=== PATIENT | male | born 1965 ===

== ENCOUNTER 2020-07-13 00:22 | Inpatient (IN) ==
[2020-07-13] MEDS ORDERED: GLUCAGON 1 MG VIAL IM PRN ×2 (02:46→02:57)
[2020-07-13] MEDS ORDERED: DEXTROSE 50% 25 GM/50 ML VIAL IV PRN ×2 (02:46→02:57)
[2020-07-13] MEDS ORDERED: ACETAMINOPHEN 325 MG TABLET PO PRN (02:57)
[2020-07-13] MEDS ORDERED: ALBUTEROL 2.5 MG/3 ML NEB RESP TX PRN (02:57)
[2020-07-13] MEDS: ENOXAPARIN 40 MG/0.4 ML SYRINGE SUBCUT SCH (03:51)
[2020-07-13] MEDS: HYDROmorphone 2 MG/1 ML VIAL IV PRN ×5 (06:40→20:11)
[2020-07-13] MEDS: PIPERACILLIN/TAZOBACTAM 3,375 MG in SODIUM CHLORIDE 0.9% 100 ML IV SCH ×2 (06:59→16:30)
[2020-07-13 07:15] LABS: Basophils % 0.1 % (0.0-0.8); Hematocrit 31.5 VOL% (42.0-52.0); Hemoglobin 10.8 GM/DL (14.0-18.0); Immature Granulocytes % 0.3 %; Immature Granulocytes Absolute 0.05 #; Lymphocytes # 0.4 10*3/uL (1.4-4.0); Lymphocytes % 2.9 % (21.2-54.2); Mean Corpuscular HGB Conc 34.3 GM/DL (32-36); Mean Corpuscular Volume 94.6 FL (87-102); Mean Platelet Volume 9.1 FL (9.6-12.0); Monocytes % 7.9 % (1.7-12.7); Neutrophils % 88.8 % (38.7-73.9); Platelet Count 243 T/CUMM (130-400); Red Blood Count 3.33 MC/CUMM (3.8-5.5); Red Cell Distribution Width 12.4 % (9.3-17.3); White Blood Count 15.2 T/CUMM (4-12)
[2020-07-13] MEDS: ALBUTEROL/IPRATROPIUM 3 ML NEB RESP TX SCH ×3 (07:23→19:53)
[2020-07-13 07:36] LABS: Albumin 2.6 G/DL (3.4-5.0); Bilirubin,Total 0.4 MG/DL (0.2-1.0); Calcium 8.5 MG/DL (8.5-10.1); Osmolality,Calculated 282.3 MOS/KG (273-304); Potassium 4.2 MMOL/L (3.5-5.1); Total Protein 6.3 G/DL (6.4-8.2)
[2020-07-13 07:38] LABS: Anisocytosis 1+; Band Neutrophils 2 % (0-10); Lymphocytes 5 % (20-55); Macrocytosis Slight; Platelet Estimate Normal; Segmented Neutrophils 84 % (50-85); Total Cells Counted 100
[2020-07-13] MEDS: INSULIN REGULAR 100 UNIT/ML SUBCUT SCH ×4 (08:14→23:19)
[2020-07-13] MEDS: BENZONATATE 100 MG CAPSULE PO SCH ×3 (08:26→20:10)
[2020-07-13] MEDS: PANTOPRAZOLE 40 MG TABLET PO SCH (08:27)
[2020-07-13 10:11] LABS: INR 1.1; Partial Thromboplastin Time 30.2 SECS (23.9-33.8)
[2020-07-13] MEDS: ONDANSETRON 4 MG/2 ML VIAL IV PRN ×2 (10:38→14:39)
[2020-07-13] MEDS ORDERED: fentaNYL 25 MCG/HR PATCH TRANSDERM SCH (17:30)
[2020-07-13] MEDS ORDERED: DOCUSATE SODIUM 100 MG CAPSULE PO PRN (17:58)
[2020-07-14] MEDS: PIPERACILLIN/TAZOBACTAM 3,375 MG in SODIUM CHLORIDE 0.9% 100 ML IV SCH ×2 (00:07→10:54)
[2020-07-14] MEDS: HYDROmorphone 2 MG/1 ML VIAL IV PRN ×7 (00:08→19:34)
[2020-07-14] MEDS: ENOXAPARIN 40 MG/0.4 ML SYRINGE SUBCUT SCH (03:24)
[2020-07-14] MEDS: ALBUTEROL/IPRATROPIUM 3 ML NEB RESP TX SCH ×4 (03:25→19:38)
[2020-07-14 05:37] LABS: Basophils % 0.2 % (0.0-0.8); Eosinophils # 0.1 10*3/uL (0.0-0.87); Eosinophils % 0.8 % (0.00-10.9); Hematocrit 33.9 VOL% (42.0-52.0); Hemoglobin 11.2 GM/DL (14.0-18.0); Immature Granulocytes % 0.5 %; Immature Granulocytes Absolute 0.05 #; Lymphocytes # 0.6 10*3/uL (1.4-4.0); Lymphocytes % 6.2 % (21.2-54.2); Mean Corpuscular Volume 96.3 FL (87-102); Mean Platelet Volume 9.2 FL (9.6-12.0); Monocytes % 6.4 % (1.7-12.7); Neutrophils % 85.9 % (38.7-73.9); Platelet Count 265 T/CUMM (130-400); Red Blood Count 3.52 MC/CUMM (3.8-5.5); Red Cell Distribution Width 12.4 % (9.3-17.3); White Blood Count 10.1 T/CUMM (4-12)
[2020-07-14 06:00] LABS: Albumin 2.8 G/DL (3.4-5.0); Bilirubin,Total 0.8 MG/DL (0.2-1.0); Calcium 8.4 MG/DL (8.5-10.1); Osmolality,Calculated 277.5 MOS/KG (273-304); Potassium 3.6 MMOL/L (3.5-5.1); Total Protein 6.5 G/DL (6.4-8.2)
[2020-07-14] MEDS: INSULIN REGULAR 100 UNIT/ML SUBCUT SCH ×4 (08:18→20:46)
[2020-07-14 09:51] LABS: Lymphocytes,Pleural Fluid 72 %; Monocytes,Pleural Fluid 1 %; Neutrophils,Pleural Fluid 27 %
[2020-07-14 09:52] LABS: RBC,Pleural Fluid 66722 T/CUMM
[2020-07-14] MEDS: MAGNESIUM HYDROXIDE SUSP 30 ML UDCUP PO PRN ×2 (10:35→20:46)
[2020-07-14] MEDS ORDERED: BISACODYL 10 MG SUPP RECTAL ONE (10:50)
[2020-07-14] MEDS ORDERED: LACTULOSE 20 GM/30 ML UDCUP PO ONE (10:50)
[2020-07-14] MEDS ORDERED: POLYETHYLENE GLYCOL POWDER 255 GM BOTTLE PO ONE (10:50)
[2020-07-14] MEDS: BENZONATATE 100 MG CAPSULE PO SCH ×3 (11:24→20:47)
[2020-07-14] MEDS: PANTOPRAZOLE 40 MG TABLET PO SCH (11:24)
[2020-07-14] MEDS ORDERED: fentaNYL 50 MCG/HR PATCH TRANSDERM SCH (12:00)
[2020-07-14] MEDS: POLYETHYLENE GLYCOL POWDER 17 GM PACK PO SCH (13:32)
[2020-07-14] MEDS: DOCUSATE SODIUM 100 MG CAPSULE PO SCH (20:47)
[2020-07-14] MEDS ORDERED: LEVOFLOXACIN INJ 750 MG in PREMIX 1 EACH IV SCH (21:00)
[2020-07-14] MEDS ORDERED: SODIUM PHOSPHATE ENEMA 133 ML BOTTLE RECTAL ONE (22:40)
[2020-07-15] MEDS: ALBUTEROL/IPRATROPIUM 3 ML NEB RESP TX SCH ×2 (00:23→07:24)
[2020-07-15] MEDS: HYDROmorphone 2 MG/1 ML VIAL IV PRN ×3 (00:49→09:35)
[2020-07-15] MEDS: ENOXAPARIN 40 MG/0.4 ML SYRINGE SUBCUT SCH (03:28)
[2020-07-15] MEDS: PANTOPRAZOLE 40 MG TABLET PO SCH (08:19)
[2020-07-15] MEDS: POLYETHYLENE GLYCOL POWDER 17 GM PACK PO SCH (08:19)
[2020-07-15] MEDS: DOCUSATE SODIUM 100 MG CAPSULE PO SCH (08:19)
[2020-07-15] MEDS: INSULIN REGULAR 100 UNIT/ML SUBCUT SCH (08:19)
[2020-07-15] MEDS: BENZONATATE 100 MG CAPSULE PO SCH (08:19)
[2020-07-15 08:34] VITALS: BP 124/80
== END 2020-07-15 11:24 | disposition home or self-care (01) | DRG 136 ==
LOC: SUATTDRO 02:20 → N.4E 02:20
PROVIDERS: ADMIT Internal Medicine; ATTEND Internal Medicine